=== PATIENT | female | born 1985 | race Caucasian/White ===

== ENCOUNTER 2022-08-19 09:46 | Outpatient (CLI) | payer BC, SELFPAY ==
[2022-08-19 10:37] LABS: Hematocrit 40.8 % (37.0-47.0); Hemoglobin 12.8 g/dL (12.0-15.0); Mean Corpuscular HGB Conc 31.4 g/dl (32-36); Mean Corpuscular Hemoglobin 29.5 pg (26-34); Mean Platelet Volume 10.9 fl (7.4-10.4); Platelet Count Result 192 k/mm3 (150-375); Red Blood Count 4.34 M/mm3 (4.2-5.4); Red Cell Distribution Width 13.4 % (11.5-14.5); White Blood Count 5.7 K/mm3 (4.5-10.0)
[2022-08-19 10:52] LABS: Alanine Aminotransferase 22 U/L (6-35); Albumin Level 4.3 g/dL (3.5-5.1); Alkaline Phosphatase 39 U/L (38-126); Anion Gap 4 mmol/L (8-16); Aspartate Amino Transferase 23 U/L (14-36); Bilirubin,Total 0.5 mg/dL (0.2-1.3); Blood Urea Nitrogen 7 mg/dL (7-17); CRP 0.6 mg/dL (<1.0); Calcium 8.6 mg/dL (8.4-10.2); Carbon Dioxide 30 mmol/L (22-30); Chloride 105 mmol/L (98-107); Estimated Glomerular Filt Rate > 60; Glucose 87 mg/dL (65-110); Sodium 139 mmol/L (137-145)
[2022-08-19 11:16] LABS: Erythrocyte Sedimentation Rate 11 mm/hr (0-20)
[2022-08-25 11:02] LABS: Gliadin AB, IgG <1.0 U/mL (<15.0); TTG IGA AB <1.0 U/mL (<15.0)
== END 2022-08-19 09:47 | disposition home or self-care (01) ==
LOC: ANHLAB 09:47
PROVIDERS: PCP Family Medicine; Visit Provider Nurse Practitioner
DX: K58.9 Irritable bowel syndrome, unspecified (principal); R10.9 Unspecified abdominal pain; R11.0 Nausea; R14.0 Abdominal distension (gaseous)
CPT/HCPCS: 36415; 80053; 84443; 85027; 85652; 86140; 86255; 86364

== ENCOUNTER 2022-08-20 07:19 | Outpatient (CLI) | payer BC, SELFPAY ==
[2022-08-20 08:34] LABS: Toxigenic C. Diff NEGATIVE (NEGATIVE)
[2022-08-24 23:23] LABS: H pylori Ag Stool Not Detected (Not Detected)
[2022-08-28 20:32] LABS: Calprotectin, Stool 9 mcg/g
== END 2022-08-20 07:20 | disposition home or self-care (01) ==
LOC: ANHLAB 07:20
PROVIDERS: PCP Family Medicine; Visit Provider Nurse Practitioner
DX: K58.9 Irritable bowel syndrome, unspecified (principal); R10.9 Unspecified abdominal pain; R11.0 Nausea; R14.0 Abdominal distension (gaseous); A04.8 Other specified bacterial intestinal infections
CPT/HCPCS: 83993; 87045; 87269; 87338; 87427; 87493

== ENCOUNTER 2022-09-02 16:11 | Outpatient (CLI) | payer BC, SELFPAY ==
--- NOTE | ~2022-09-02 | CT_ITS ---
EXAMINATION: CT abdomen pelvis wo con DATE: 09/02/2022 16:28 INDICATION: Left abdominal pain. Diarrhea. Nausea. Bloating. TECHNIQUE: Computed tomography (CT) of the abdomen and pelvis was performed without intravenous contr ast. Automated exposure control and iterative reconstruction technique were employed. The dose-length product was 478.72 mGy-cm. COMPARISON: None. FINDINGS: The visualized portions of the lung bases are clear without pneumonia or pleural effusion. The heart size is normal. No pericardial effusion. The liver and spleen are normal. The gallbladder a re normal. There is a 5.3 cm cystic lesion in the pancreas. The adrenal glands and kidneys are normal . There are no dilated loops of bowel. The appendix is normal. 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 There are n o pathologically enlarged lymph nodes. There is no free intraperitoneal fluid. There is moderate lowe r lumbar spondylosis. IMPRESSION: 1. 5.3 cm cystic lesion of the pancreas, most likely a pseudocyst. Correlate for history of pancreati tis. The differential diagnosis also includes intraductal papillary mucinous neoplasm (IPMN), mucinou s cystic neoplasm (MCN), serous cystadenoma, and neuroendocrine tumor. Abdomen MRI without and with c ontrast is recommended. 2. Gastric varices. This finding may be secondary to splenic vein stenosis or thrombosis, which is mo st commonly seen with chronic pancreatitis. Reviewed, dictated and finalized at location E. IMPRESSION: 1. 5.3 cm cystic lesion of the pancreas, most likely a pseudocyst. Correlate fo r history of pancreatitis. The differential diagnosis also includes intraductal papillary mucinous neoplasm (IPMN), mucinous cystic neoplasm (MCN), serous cys tadenoma, and neuroendocrine tumor. Abdomen MRI without and with contrast is re commended. 2. Gastric varices. This finding may be secondary to splenic vein stenosis or t hrombosis, which is most commonly seen with chronic pancreatitis.
== END 2022-09-02 16:12 | disposition home or self-care (01) ==
PROVIDERS: PCP Family Medicine; Visit Provider Nurse Practitioner
DX: R14.0 Abdominal distension (gaseous) (principal); R11.0 Nausea; R10.9 Unspecified abdominal pain; I86.4 Gastric varices; K86.89 Other specified diseases of pancreas
CPT/HCPCS: 74176

== ENCOUNTER 2022-09-03 13:25 | Outpatient (CLI) | payer BC, SELFPAY ==
[2022-09-03 13:54] LABS: Basophils Percent Auto 0.5 % (0.2-1.2); Eosinophils Absolute Auto 0.1 K/mm3 (0-0.3); Eosinophils Percent Auto 1.9 % (0-4.4); Hematocrit 39.9 % (37.0-47.0); Hemoglobin 12.8 g/dL (12.0-15.0); Immature Granulocyte Absolute 0.01 K/mm3 (0.00-0.031); Immature Granulocyte Percent A 0.2 % (0-0.5); Lymphocytes Absolute Auto 1.05 K/mm3 (0.9-3.2); Lymphocytes Percent Auto 24.4 % (18.3-44.2); Mean Corpuscular HGB Conc 32.1 g/dl (32-36); Mean Corpuscular Hemoglobin 29.8 pg (26-34); Mean Corpuscular Volume 92.8 fl (80-100); Mean Platelet Volume 11.1 fl (7.4-10.4); Monocytes Absolute Auto 0.2 K/mm3 (0.1-0.6); Monocytes Percent Auto 4.9 % (2.6-8.5); Neutrophils Absolute Auto 2.9 K/mm3 (1.3-6.7); Neutrophils Percent Auto 68.1 % (45.5-73.1); Platelet Count Result 175 k/mm3 (150-375); Red Cell Distribution Width 13.3 % (11.5-14.5); White Blood Count 4.3 K/mm3 (4.5-10.0)
[2022-09-03 14:07] LABS: Alanine Aminotransferase 20 U/L (6-35); Albumin Level 4.6 g/dL (3.5-5.1); Alkaline Phosphatase 42 U/L (38-126); Amylase 64 U/L (30-110); Anion Gap 7 mmol/L (8-16); Aspartate Amino Transferase 25 U/L (14-36); Bilirubin,Total 0.4 mg/dL (0.2-1.3); Blood Urea Nitrogen 6 mg/dL (7-17); Calcium 8.8 mg/dL (8.4-10.2); Carbon Dioxide 30 mmol/L (22-30); Chloride 103 mmol/L (98-107); Estimated Glomerular Filt Rate > 60; Glucose 96 mg/dL (65-110); Lipase 90 U/L (23-300); Potassium 4.1 mmol/L (3.4-5.0); Sodium 140 mmol/L (137-145); Triglycerides 133 mg/dL (<150)
[2022-09-08 21:05] LABS: Immunoglobulin G, Serum 817 mg/dL (600-1640); Immunoglobulin G1 442 mg/dL (382-929); Immunoglobulin G2 317 mg/dL (241-700); Immunoglobulin G3 53 mg/dL (22-178)
== END 2022-09-03 13:26 | disposition home or self-care (01) ==
PROVIDERS: PCP Family Medicine; Visit Provider Nurse Practitioner
DX: K86.1 Other chronic pancreatitis (principal); K86.3 Pseudocyst of pancreas; R10.12 Left upper quadrant pain; R11.0 Nausea
CPT/HCPCS: 36415; 80053; 82150; 82784; 82787; 83690; 84478; 85025; 86038

== ENCOUNTER 2024-09-11 00:57 | Day surgery (SDC) | payer BC, SELFPAY ==
[2024-09-03 14:02] VITALS: BMI 28.6
--- OUTSIDE RECORDS SUMMARY | 2024-09-11 01:00 | XMS_ITS | Clinical Summary ---
Author Organization [facility] Address [address] [place] [phone] Care Team Providers Care Trust And Estates Paralegal Name Role Phone Provider, None Primary Care Provider Unavailabl e Allergies Active Allergy Reactions Criticality Noted Date Comments Morphine Anaphylaxis,Hives,Rash 01/08/2014 Medications Vit-Fe Fumarate-FA ( VITAMIN) PO CHEW Take 1 Tab by mouth nightly. Active acetaminophen 325 MG PO TABS Take 1-2 Tabs by mouth every 6 hours as needed for Pain or Fever (for temperature greater than 100.4 F). Do not exceed 4000 mg of acetaminophen in 24 hour from all sources. 01/31/20 14 Active progesterone 8 % VA GEL 1 Applicatorful by Vaginal route daily. 30 Applicatorful 3 01/31/20 14 Active NIFEdipine 20 MG PO CAPS Take 1 Cap by mouth every 6 hours. 120 Cap 1 02/15/20 14 Active Active Problems Problem Noted Date Diagnosed Date Previous stillbirth or demise, antepartum 2013 Short cervix affecting 01/09/2014 History of cone biopsy of cervix complicating pr egnancy 01/09/2014 Immunizations Immunization Administration Dates Next Due Covid-19, Mrna, Lnp-s, Pf, 30 Mcg/0.3 Ml Dose (P kusum) 03/17/2021 Influenza Vaccine, Quadrivalent, PF 01/30/2014 TDAP Vaccine 02/14/2014 Family History Medical History Relation Name Comments Cancer Father sarcoidosis Cancer Maternal Grandfather esopheg eal Cancer Maternal Grandmother colorec amrik Miscarriage Mother and del iveries; d/t heart shaped uterus Diabetes Paternal Grandfather Hypertension Paternal Grandfather Other-comment Paternal Grandfather parker cisneros's Relation Name Status Comments Father Maternal Grandfather Maternal Grandmother Mother Paternal Grandfather Paternal Grandmother Alive Social History Tobacco Use Types Packs/Day Years Used Date Smoking Tobacco: Never Alcohol Use Standard Drinks/Week Comments No 0 (1 standard drink = 0.6 oz pur e alcohol) Comments No Sex and Gender Information Value Date Recorded Sex Assigned at Not on file Legal Sex Female 2:41 PM CDT Gender Identity Not on file Sexual Orientation Not on file Last Filed Vital Signs Vital Sign Reading Time Taken Comments Blood Pressure 116/69 03/04/2014 12:45 PM SPECIAL NEEDS TEACHER Pulse 100 03/04/2014 12:45 PM SPECIAL NEEDS TEACHER Temperature 36.6 C (97.9 F) 01/30/2014 8:20 AM CDT Respiratory Rate 16 03/04/2014 12:45 PM SPECIAL NEEDS TEACHER Oxygen Saturation 97% 01/28/2014 8:27 PM CDT Inhaled Oxygen Concentration - - Weight 96 kg (211 lb 9.6 oz) 03/04/2014 12:45 PM SPECIAL NEEDS TEACHER Height 165.1 cm (5' 5 ) 02/14/2014 12:32 PM CDT Body Mass Index 35.21 02/14/2014 12:32 PM CDT Plan of Treatment Health Maintenance Due Date Last Done Comments Hepatitis C Virus (HCV) Screening 1987 Hepatitis B Immunization (1 of 3 - 19+ 3-dose series) 2006 Pap Smear 01/16/2008 Cervical Cancer Screening (CCS) 2017 HPV/Cotest 2017 Influenza Immunization (#1) 12/25/202303/25, 02/15/2018, 01/30/2014 SARS-COV-2 Immunization (2023- season) 2023 03/17/2021, 07/11/2020, 06/17/2020 Respiratory Syncytial Virus (RSV) Immunization (Adult) (1 - 1-dose 75+ series) 2062 DTaP/Tdap/Td Immunization Discontinued 02/14/2014 Meningococcal Immunization (ACWY) Aged Out No longer eligible based on patient's age to complete this topic Pneumococcal Immunization Combined Aged Out No longer eligible based on patient's age to complete this topic Rotavirus Immunization Aged Out No lo nger eligible based on patient's age to complete this topic Insurance [employer] Advance Directives * Full Code (Latest Code Status on File) Date Activated Date Inactivated Comments 01/09/2014 12:25 PM 01/30/2014 12:31 PM Care Teams Trust And Estates Paralegal Relationship Specialty Start Date End Date Provider, None GILLIAN PCP - General 01/09/14
--- OUTSIDE RECORDS SUMMARY | 2024-09-11 01:00 | XMS_ITS | Clinical Summary ---
Author Organization [address] [facility] [address] [place] [address] Phone Care Team Providers Care Company Manager Name Role Phone Anthony Sandoval MD Primary Care Provider Allergies Active Allergy Reactions Criticality Noted Date Comments Morphine Anaphylaxis High 09/06/2022 Medications pantoprazole (PROTONIX) 40 mg Tablet, Delayed Release (E.C.) Take 1 Tablet (40 mg) by mouth daily. 30 Tablet 1 09/08/2022 Active MULTIVITAMIN ORAL Take 1 Tablet by mouth daily. Active OMEGA-3 FATTY ACIDS-FISH OIL ORAL Take 1,200 mg by mouth daily. OTC, unknown dose Active OTHER Take 500 mg by mouth daily. L-Glutamine Active OTHER Take 1,600 mg by mouth 2 times daily. [place] Active acetaminophen (TYLENOL) 325 mg tablet Take 325 mg by mouth every 4 hours as needed (3 times daily PRN). Active CHOLECALCIFEROL , VITAMIN D3, ORAL Take 125 mcg by mouth daily. Vitamin D3 - OTC Active Active Problems Problem Noted Date Diagnosed Date Abdominal pain 09/06/2022 Nausea with vomiting 09/06/2022 Hypoglycemia 09/06/2022 High anion gap metabolic acidosis 09/06/2022 Pancreatic mass 09/06/2022 Overview (09/08/2022): Added automatically from request for surgery [id number] Immunizations Immunization Administration Dates Next Due (ACTHIB/HIBERIX)(2 MOS-5 YRS /6 WKS-4 YRS) HAEMOPHILUS INFLUENZAE TYPE B VACCINE (HIB), PRP-T CONJUGATE, 4 DOSE, 0.5 ML IM 11/01/2022 (BEXSERO)(10-25 YR) MENINGOC OCCAL RECOMBIANT PROTEIN AND OUTER MEMBRANE VESICLE VACCINE, SEROGROUP B MENB-4C, 2 DOSE IM 11/29/2022,11/01/2022 (MENQUADFI)(2 YRS UP) MENING OCOCCAL POLYSACCHARIDE VACCINE A,C,Y,W-135, TT CONJUGATE (PF) 10 MCG/0.5 ML IM SOLUTION 12/28/2022,11/01/2022 (PREVNAR 20)(6 WKS UP) PNEUM OCOCCAL CONJUGATE VACCINE 20-VALENT (PCV20), POLYSACCHARIDE [id number] CONJUGATE, ADJUVANT 0.5 ML (PF) IM 11/01/2022 Family History Medical History Relation Name Comments Other Father Esophageal Cancer Maternal Grandfather Colon Cancer Maternal Grandmother Gastric Cancer Neg Hx Liver Cancer Neg Hx Pancreatic Cancer Neg Hx Relation Name Status Comments Father Maternal Grandfather Maternal Grandmother Social History Tobacco Use Types Packs/Day Years Used Date Smoking Tobacco: Never Smokeless Tobacco: Never Tobacco Cessation:Counseling Given: Not Answered Alcohol Use Standard Drinks/Week Comments Yes 0 (1 standard drink = 0.6 oz pur e alcohol) 1-2 drinks twice a month Feeling Safe Answer Date Recorded Are you in a relationship wi th someone who hurts you emotionally and/or physically? 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 Gender Identity Not on file Sexual Orientation Not on file Last Filed Vital Signs Vital Sign Reading Time Taken Comments Blood Pressure 106/66 12/28/2022 10:16 AM CDT Pulse 75 12/28/2022 10:16 AM CDT Temperature 36.3 C (97.3 F) 12/28/2022 10:16 AM CDT Respiratory Rate 16 12/28/2022 10:16 AM CDT Oxygen Saturation 99% 12/21/2022 10:31 AM CDT Inhaled Oxygen Concentration - - Weight 73.1 kg (161 lb 1.6 oz) 12/21/2022 10:31 AM CDT Height 163.8 cm (5' 4.5 ) 12/21/2022 10:31 AM CD T Body Mass Index 27.23 12/21/2022 10:31 AM CDT Plan of Treatment Health Maintenance Due Date Last Done Comments HEPATITIS B VACCINES (1 of 3 - 19+ 3-dose series) 2006 HPV/Cotest (21-29) 01/16/2008 CERVICAL CANCER SCREENING 2017 HPV/Cotest (30-65) 2017 PAP SMEAR 2017 INFLUENZA VACCINE (#1) 2023 01/30/2014 DTAP/TDAP/TD VACCINES (2 - T d or Tdap) 02/15/2024 02/14/2014 HPV VACCINES Aged Out No longer eligi ble based on patient's age to complete this topic Medical Devices Implanted Type Area Oriental Rug Repairer Device Identifier Shelf Expiration Date Model / Serial / Lot Endo Clip Ii 10mm [id number] - [id number] Implanted:Qty : 1 on 12/01/2022 by Han Carrillo MD at [facility] Clip N/A: Abdomen [employer] - COVIDIEN 09/23/2027 [id number] / / [id number] Hemostat Surg Snow 2x4in 2081 [id number] Implanted:Qty : 1 on 12/01/2022 by Han Carrillo MD at [facility] Hemostatic N/A: Abdomen J[employer]J- [employer] 05/25/2024 2082 / / [id number] Hemostat Surg Snow 2x4in 2081 - [id number] Implanted:Qty : 1 on 12/01/2022 by Han Carrillo MD at [facility] Hemostatic N/A: Abdomen J[employer]J- [employer] 05/25/2024 2082 / / [id number] Insurance BCBS BLUE ACCESS CHOICE RX [facility] Commercial Advance Directives For more information, please contact: [phone] * Full Code (Latest Code Status on File) Date Activated Date Inactivated Comments 12/01/2022 5:20 PM 12/04/2022 2:35 PM * Full Code Date Activated Date Inactivated Comments 12/01/2022 5:46 AM 12/01/2022 5:20 PM * Full Code Date Activated Date Inactivated Comments 09/06/2022 3:51 PM 09/08/2022 8:30 PM Care Teams Company Manager Relationship Specialty Start Date End Date Anthony Sandoval MD [address] [place] [phone] PCP - General Family Practice 05/11/16
--- OUTSIDE RECORDS SUMMARY | 2024-09-11 01:00 | XMS_ITS | Continuity of Care Document ---
Author Organization [facility] Address [address] [place] [address] Phone Care Team Providers Care Tuber Machine Operator Name Role Phone Unavailable Unavailable Unavailable Advance Directives Directive Yes / No Effective Date File Name No Information Encounters Encounter Description Practice Location Reason(s) For Visit Diagnoses Date Provider Providers Copied on Encounter [facility], [address], [place], [place], [id number], [place] tel:[phone] [facility] No Information [id number] No Information Referring Provider: LORIE More, [address], [place], [address]. tel:[phone] Family History Family Member Type Diagnosis Age At Onset No Information Payers Payer name Insurance type Covered green party ID Ashli greenwood(s) [employer] [id number] CI [id number] Social History Type Description Quantity Date Captured Comments Sex Female Smoking Status No Information Chief Complaint And Reason For Visit No Information History Of Present Illness Encounter Date Complaint History Of Prese nt Illness No Information Instructions Date Instruction Additional Infor mation No Information Assessments Type Assessment Date No Information
[2024-09-11 10:29] VITALS: BP 104/60; PULSE 78; RESP 18; TEMP 36.1; O2SAT 100
--- NOTE | 2024-09-11 10:31 | P.PNAN_ITS ---
Anes - Initial Pre Proc Eval Procedure: Operation Date: 09/11/24 12:30 Proposed Procedures p Colonoscopy - Yair Abreu MD Date/Time: 09/11/24 10:31 Surgeon: Yair Abreu MD Pre Op Diagnosis: Personal history of colon polyps, unspecified Patient Data Age: 39 Gender: F Height: 1.65 m Weight: 78 kg Allergies Allergy/AdvReac Type Severity Reaction Status Date / Time morphine Allergy Severe ANAPHYLAXIS Verified 09/11/24 10:28 Home Medications Medication Instructions Recorded Confirmed Type No Home Medications 09/03/24 09/03/24 History Patient hx anesthesia problems: none Family hx anesthesia problems: none Results Review: All pre-operative results and documents have been reviewed as part of the pre- operative evaluation. [facility] Past Medical History Medical History (Updated 09/28/22 @ 12:51 by Abigail David APRN) Weight loss Gastritis and duodenitis Dizziness Postprandial epigastric pain Benign cystic mucinous tumor LUQ abdominal pain Pancreatic pseudocyst Chronic pancreatitis Obesity (BMI 30.0-34.9) Abdominal bloating Nausea Abdominal pain Hx of adenomatous colonic polyps Diverticulitis Family History Family History Mother Hypertension Depression Father Heart disease Social History Social History Smoking status: Never smoker Second hand tobacco smoke exposure: No Alcohol intake: never Substance use type: does not use Living arrangements: with family Spiritual care concerns: No Anes - Eval Final PreProcedure Day of Procedure 09/11/24 10:31 Patient weight: overweight Heart: regular rate and rhythm Lungs: clear to auscultation Airway: Mallampati scale class II Neurological: alert and oriented Last oral intake: >/= 8 hours ASA classification: II Emergent: no Anesthetic plan: proceed Anesthesia type and monitoring: general GIVS and standard monitoring Results Review: All pre-operative results and documents have been reviewed as part of the pre- operative evaluation. Informed Consent: The patient's anesthetic plan and its attendant risks and benefits were discussed with the patient/family/POA. Questions were solicited and answers provided to the satisfaction of the patient/family/POA.
[2024-09-11 10:42] LABS: BEDSIDEPREGUCG Negative (Negative)
[2024-09-11] MEDS: LACTATED RINGERS 1,000 ML 150 ML IV CONT (10:45)
--- NOTE | 2024-09-11 11:03 | PM.HPGS ---
History of Present Illness History of Present Illness Consent: Risks, benefits, and alternatives have been discussed and questions answered. Patient agrees to proceed with procedure. Chief complaint: Personal history of colon polyps, unspecified Narrative: Veronica Nunes is a 39 year old female with colon polyp 6 years ago Review of Systems Review of Systems: All systems reviewed & are unremarkable except as noted in HPI and below PMFSH Past Medical History Medical History (Updated 09/11/24 @ 11:04 by Yair Abreu MD) Colon polyp Weight loss Gastritis and duodenitis Dizziness Postprandial epigastric pain Benign cystic mucinous tumor LUQ abdominal pain Pancreatic pseudocyst Chronic pancreatitis Obesity (BMI 30.0-34.9) Abdominal bloating Nausea Abdominal pain Hx of adenomatous colonic polyps Diverticulitis Family History Family History Mother Hypertension Depression Father Heart disease Social History Social History Smoking status: Never smoker Second hand tobacco smoke exposure: No Alcohol intake: never Substance use type: does not use Living arrangements: with family Spiritual care concerns: No Meds Home Medications and Allergies Home Medications Medication Instructions Recorded Confirmed Type No Home Medications 09/03/24 09/03/24 History Allergies Allergy/AdvReac Type Severity Reaction Status Date / Time morphine Allergy Severe ANAPHYLAXIS Verified 09/11/24 10:28 Vital Signs Vital Signs - 24 hr 09/11/24 10:29 Temperature 97 F L Pulse Rate 78 Respiratory Rate 18 Blood Pressure 104/60 Pulse Oximetry 100 Oxygen Delivery Room Air Exam Const: General: comfortable and no acute distress HENMT: Face/Nose/Sinus: Normal nares present Eyes: General: appearance normal, both eyes and all related structures Neck: Neck: no JVD Resp: Auscultation: clear to auscultation bilaterally Cardio: Rate: regular rate Rhythm: regular rhythm GI: Inspection: non-distended GI Palp: Yes Soft to palpation Skin: General skin exam: normal color Neuro: Speech: normal speech Extrem: General: normal to inspection Psych: Mental Status: mental status grossly normal Assessment and Plan Assessment and plan (1) Colon polyp: Code(s): K63.5 - Polyp of colon Status: Acute Assessment and Plan: colonoscopy
[2024-09-11 11:18] VITALS: BP 88/51; PULSE 71; RESP 13; O2SAT 100
[2024-09-11 11:28] VITALS: BP 101/61; PULSE 77; RESP 15; O2SAT 100
[2024-09-11 11:38] VITALS: BP 103/61; PULSE 61; RESP 20; O2SAT 100
== END 2024-09-11 11:57 | disposition home or self-care (01) ==
PROVIDERS: Anesthesiology; PCP Family Medicine; Referring Provider Internal Medicine Gastroenterology; Visit Provider Internal Medicine Gastroenterology
PROC: 0DJD8ZZ Inspection of Lower Intestinal Tract, Via Natural or Artificial Opening Endoscopic (ICD-10-PCS; CPT 45378; principal; 2024-09-11 12:30)
DX: Z12.11 Encounter for screening for malignant neoplasm of colon (principal); K64.8 Other hemorrhoids
CPT/HCPCS: 45378; J2704; J7120